=== PATIENT | male | born 1990 | race Asian ===

== ENCOUNTER 2017-06-23 15:47 | Emergency (ER) | payer BC, OTHER ==
[~2017-06-23] VITALS: Ht 160 cm; Wt 63.5 kg
[~2017-06-23 15:47] MED LIST: CIPR500T PO; METH-364 PO; PROP10TA PO
[2017-06-23 16:15] LABS: BILIRUBIN,URINE NEGATIVE (NEG); GLUCOSE,URINE NEGATIVE (NEG); NITRITE,URINE NEGATIVE (NEG); PH,URINE 5.5; PROTEIN,URINE 100 mg/dL (NEG-TRACE); UROBILINOGEN,URINE 0.2 mg/dL (0.2 mg/dL)
[2017-06-23 16:26] LABS: BACTERIA,URINE FEW /HPF (0-FEW); SQUAMOUS EPITHELIAL CELL,UR OCC /LPF; WBC,URINE TNTC /HPF (0-4)
[2017-06-23] MEDS ORDERED: IOHEXOL 300 MG/ML 75 ML VIAL IV ONE (16:45)
[2017-06-23] MEDS ORDERED: CONTRAST GIVEN MC PRN (16:45)
--- NOTE | 2017-06-23 17:19 | RAD ---
CT abdomen and pelvis with contrast History: Bilateral flank pain, painful urination for 2 months Technique: After the administration of intravenous contrast, CT imaging was performed of the abdomen and pelvis. No oral contrast was given as per request. Multiplanar images are reviewed. Exposure: One or more of the following individualized dose reduction techniques were utilized for this examination: 1. Automated exposure control 2. Adjustment of the mA and/or kV according to patient size 3. Use of iterative reconstruction technique. Contrast: 75 cc Omnipaque 300 Comparison: November 06, 2015 Findings: There is no significant abnormality of the visualized lung bases. There is no significant abnormality of the liver, spleen, pancreas, adrenal glands. Both kidneys enhance without hydronephrosis. There is likely 2 mm superior right renal calculi somewhat less apparent than previously.Gallbladder is present without obvious intraluminal abnormality by CT. Accurate evaluation of bowel is limited without oral contrast. There is no significant inflammatory change adjacent to the bowel. There is no evidence of bowel obstruction, free fluid, or free air. Normal appendix is visualized. There is mild circumferential prominence of the urinary bladder wall. There is no significant lymphadenopathy. No significant osseous abnormality is identified. Impression: 1. There is likely small 2 mm superior right renal calculus less apparent than previously, no hydronephrosis. Nonspecific circumferential prominence of the urinary bladder wall could be due to cystitis in the appropriate clinical setting. Electronically signed by: Yair Sy MD (06/23/2017 5:16 PM) [facility]
[2017-06-23 19:12] VITALS: BP 129/91
--- NOTE | 2017-06-23 20:07 | ED.ADGEN ---
Past Medical History Past Medical History: Hepatitis, Other Additional Past Medical Histor: B Past Surgical History: No Surgical History Alcohol Use: None Drug Use: None Adult General Chief Complaint Chief Complaint: FLANK PAIN HPI HPI Patient is a 26 year old [place] male presents with right flank pain for the past several hours. Pain is nonreproducible nonradiating and is associated with dysuria. Patient reports fever of 102 earlier today. No nausea vomiting chills sweats or hematuria. No history of kidney stones. No testicular pain, tenderness or swelling. Denies abdominal pain. No prior medical history. Patient is non-Occitan speaking. Translation was assisted by a family friend. Review of Systems Review of Systems Review of symptoms as per history of present illness. All other review symptoms are negative. Current Medications Current Medications Current Medications Medications (Trade) Dose Ordered Sig/Estella Start Time Stop Time Status Last Admin Dose Admin Ceftriaxone Sodium 50 ml @ 100 mls/hr 1X ONCE 06/23/17 17:45 06/23/17 18:14 DC 06/23/17 17:46 100 MLS/HR Info (Do NOT chart on this entry -- for MONITORING) 1 each PRN DAILY PRN 06/23/17 16:45 06/23/17 19:22 DC Iohexol (Omnipaque 300 Mg/ml) 75 ml 1X ONCE 06/23/17 16:45 06/23/17 16:46 DC 06/23/17 16:40 75 ML Allergies Allergies Allergies Coded Allergies Type Severity Reaction Last Updated Verified No Known Drug Allergies 11/06/15 No Physical Exam Physical Exam Constitutional: Well developed, well nourished, no acute distress, non-toxic appearance. [] HENT: Normocephalic, atraumatic, bilateral external ears normal, oropharynx moist, no oral exudates, nose normal. [] Eyes: PERRLA, EOMI, conjunctiva normal, no discharge. [] Neck: Normal range of motion, no tenderness, supple, no stridor. [] Cardiovascular:Heart rate regular rhythm, no murmur [] Lungs & Thorax: Bilateral breath sounds clear to auscultation [] Abdomen: Bowel sounds normal, soft, no tenderness, no masses, no pulsatile masses. [] Skin: Warm, dry, no erythema, no rash. [] Back: R Flank pain, no CVA tenderness. [] Extremities: No tenderness, no cyanosis, no clubbing, ROM intact, no edema. [] Neurologic: Alert,, normal motor function, normal sensory function, no focal deficits noted. [] Psychologic: Affect normal, judgement normal, mood normal. [] Current Patient Data Vital Signs Vital Signs Date Time Temp Pulse Resp B/P (MAP) Pulse Ox O2 Delivery O2 Flow Rate FiO2 06/23/17 19:12 94 23 129/91 (104) 99 Room Air 06/23/17 18:35 99.0 99.0 Lab Values Laboratory Tests Test 06/23/17 15:52 06/23/17 18:33 Urine Color Yellow Urine Clarity Turbid Urine pH 5.5 Urine Specific [place] 1.010 Urine Protein 100 mg/dL (NEG-TRACE) Urine Glucose (UA) Negative mg/dL (NEG) Urine Ketones (Stick) Trace mg/dL (NEG) Urine Blood Large (NEG) Urine Nitrite Negative (NEG) Urine Bilirubin Negative (NEG) Urine Urobilinogen Dipstick 0.2 mg/dL (0.2 mg/dL) Urine Leukocyte Esterase Large (NEG) Urine RBC 3-5 /HPF (0-2) Urine WBC Tntc /HPF (0-4) Urine Squamous Epithelial Cells Occ /LPF Urine Bacteria Few /HPF (0-FEW) Glucose (Fingerstick) 104 mg/dL (70-99) H EKG EKG [] Radiology/Procedures Radiology/Procedures CT abdomen and pelvis : Right dilated proximal ureter with 2 mm stone per radiology report [] Course & Med Decision Making Course & Med Decision Making Pertinent Labs and Imaging studies reviewed. (See chart for details) [Patient with acute cystitis with findings of urinary tract infection. Patient' s afebrile with stable vital signs with pain control in the emergency department. IV antibiotics given with explicit instructions to follow-up with local primary care physician. Return precautions reviewed. Patient verbalized understanding agreement discharge instructions prior to departure.] Dragon Disclaimer Dragon Disclaimer This electronic medical record was generated, in whole or in part, using a voice recognition dictation system. CADNELARIO ARMSTRONG DO Jun 23, 2017 20:07
== END 2017-06-23 19:20 | disposition home or self-care (01) ==
LOC: ER 15:47
DX: N30.00 Acute cystitis without hematuria (principal); Z86.19 Personal history of other infectious and parasitic diseases
CPT/HCPCS: 74177; 81001; 82962; 87086; 96365; 99285; J0690; Q9967

== ENCOUNTER 2017-07-11 14:59 | Emergency (ER) | payer BC ==
[~2017-07-11] VITALS: Ht 160 cm; Wt 57.2 kg
--- NOTE | 2017-07-11 15:52 | PHYS DOC ---
Past Medical History Past Medical History: No Pertinent History Additional Past Medical Histor: B Past Surgical History: No Surgical History Alcohol Use: None Drug Use: None Adult General Chief Complaint Chief Complaint: FEVER HPI HPI 27-year-old male with no significant past medical history now complaining of fevers body aches and mild headache intermittently since last night. Patient has no chronic medical problems. Last night he perceived the onset of fevers. He has no vomiting or diarrhea. He reports intermittent mild headache but has no stiff neck and headache was gradual onset. Denies chest pain shortness of breath productive cough or abdominal pain. Patient reports normal bowel and bladder habits. He is able to walk without any difficulty and has not seen a doctor. Patient has not taken any medications for his fever. Review of Systems Review of Systems Constitutional: Denies fever or chills [] Eyes: Denies change in visual acuity, redness, or eye pain [] HENT: Denies nasal congestion or sore throat [] Respiratory: Denies cough or shortness of breath [] Cardiovascular: No additional information not addressed in HPI [] GI: Denies abdominal pain, nausea, vomiting, bloody stools or diarrhea [] : Denies dysuria or hematuria [] Musculoskeletal: Denies back pain or joint pain [] Integument: Denies rash or skin lesions [] Neurologic: Denies headache, focal weakness or sensory changes [] Endocrine: Denies polyuria or polydipsia [] Current Medications Current Medications Current Medications Medications (Trade) Dose Ordered Sig/Estella Start Time Stop Time Status Last Admin Dose Admin Acetaminophen (Tylenol) 1,000 mg 1X ONCE 07/11/17 16:00 07/11/17 16:01 DC 07/11/17 15:57 1,000 MG Ibuprofen (Motrin) 800 mg 1X ONCE 07/11/17 16:00 07/11/17 16:01 DC 07/11/17 15:56 800 MG Allergies Allergies Allergies Coded Allergies Type Severity Reaction Last Updated Verified No Known Drug Allergies 11/06/15 No Physical Exam Physical Exam Well-appearing 27-year-old male no acute distress positive clinical fever. Extremely supple neck. Benign exam Constitutional: Well developed, well nourished, no acute distress, non-toxic appearance. [] HENT: Normocephalic, atraumatic, bilateral external ears normal, oropharynx moist, no oral exudates, nose normal. [] Eyes: PERRLA, EOMI, conjunctiva normal, no discharge. [] Neck: Normal range of motion, no tenderness, supple, no stridor. [] Cardiovascular:Heart rate regular rhythm, no murmur [] Lungs & Thorax: Bilateral breath sounds clear to auscultation [] Abdomen: Bowel sounds normal, soft, no tenderness, no masses, no pulsatile masses. [] Skin: Warm, dry, no erythema, no rash. [] Back: No tenderness, no CVA tenderness. [] Extremities: No tenderness, no cyanosis, no clubbing, ROM intact, no edema. [] Neurologic: Alert and oriented X 3, normal motor function, normal sensory function, no focal deficits noted. [] Psychologic: Affect normal, judgement normal, mood normal. [] Current Patient Data Vital Signs Vital Signs Date Time Temp Pulse Resp B/P (MAP) Pulse Ox O2 Delivery O2 Flow Rate FiO2 07/11/17 16:00 106 19 120/77 (91) 97 Room Air 07/11/17 15:09 102.9 102.9 EKG EKG [] Radiology/Procedures Radiology/Procedures [] Course & Med Decision Making Course & Med Decision Making Pertinent Labs and Imaging studies reviewed. (See chart for details) Signs and symptoms consistent with viral syndrome with fever and a well- appearing male with no significant past medical history. Course and presentation appear uncomplicated. Patient without prehospital treatment. Antipyretics administered in the emergency department. Given his benign exam and appropriate hydration status no further workup or treatment indicated at this time. Patient agrees with outpatient follow-up and strict return precautions given. [] Dragon Disclaimer Dragon Disclaimer This electronic medical record was generated, in whole or in part, using a voice recognition dictation system. Departure Departure Impression: Primary Impression: Viral syndrome Additional Impression: Fever Disposition: 01 HOME, SELF-CARE Condition: STABLE Referrals: NO PCP (PCP) Patient Instructions: Fever, Adult, Viral Syndrome Additional Instructions: You have a viral syndrome. This will get better on its own with supportive treatment. Rest and drink plenty of nonalcoholic fluids. If you have fever or aches and pains take 800 mg of ibuprofen every 6 hours and Tylenol every 4 hours as needed. Follow-up with your doctor in 1-2 days and return immediately for new severe or worsening symptoms. Problem Qualifiers SAMREEN LEWIS MD Jul 11, 2017 15:52
[2017-07-11 16:00] VITALS: BP 120/77
[2017-07-11] MEDS ORDERED: IBUPROFEN 800 MG TABLET. PO ONE (16:00)
[2017-07-11] MEDS ORDERED: ACETAMINOPHEN 500 MG TABLET PO ONE (16:00)
== END 2017-07-11 16:03 | disposition home or self-care (01) ==
LOC: ER 14:59
DX: B34.9 Viral infection, unspecified (principal)
CPT/HCPCS: 99284

== ENCOUNTER 2017-08-23 16:18 | Emergency (ER) | payer BC ==
[~2017-08-23] VITALS: Ht 160 cm; Wt 64.4 kg
--- NOTE | 2017-08-23 16:48 | PHYS DOC ---
Past Medical History Past Medical History: No Pertinent History Additional Past Medical Histor: B Past Surgical History: No Surgical History Alcohol Use: None Drug Use: None Adult General Chief Complaint Chief Complaint: FLANK PAIN HPI HPI Patient is a 27 year old male presenting to the emergency department for evaluation of right flank pain that has been an ongoing issue for months. In this emergency department in June and had a CT which showed a superior pole 2 mm kidney stone patient says that he feels that he is having pain from his kidney stone. Patient says that the pain is mostly constant but gets worse with movements but can also happen when he is laying flat. He says the pain tenderness to his abdomen and causes some nausea but he denies any dysuria hematuria fevers chills or vomiting. Patient has not been taking anything for pain and she is in no obvious distress with normal vital signs. Review of Systems Review of Systems Constitutional: Denies fever or chills [] Respiratory: Denies cough or shortness of breath [] Cardiovascular: No additional information not addressed in HPI [] GI: + abdominal pain, nausea. No vomiting, bloody stools or diarrhea [] : Denies dysuria or hematuria [] Musculoskeletal: + back pain Neurologic: Denies headache, focal weakness or sensory changes [] Current Medications Current Medications Current Medications Medications (Trade) Dose Ordered Sig/[facility] Start Time Stop Time Status Last Admin Dose Admin Acetaminophen/ Hydrocodone Bitart (Lortab 5/325) 1 tab 1X ONCE 08/23/17 17:00 08/23/17 17:01 DC 08/23/17 17:15 1 TAB Diazepam (Valium) 5 mg 1X ONCE 08/23/17 17:00 08/23/17 17:01 DC 08/23/17 17:13 5 MG Ketorolac Tromethamine (Toradol Im) 60 mg 1X ONCE 08/23/17 17:00 08/23/17 17:01 DC 08/23/17 17:15 60 MG Allergies Allergies Allergies Coded Allergies Type Severity Reaction Last Updated Verified No Known Drug Allergies 11/06/15 No Physical Exam Physical Exam Constitutional: Well developed, well nourished, no acute distress, non-toxic appearance. [] Cardiovascular:Heart rate regular rhythm, no murmur [] Lungs & Thorax: Bilateral breath sounds clear to auscultation [] Abdomen: Bowel sounds normal, soft, no tenderness, no masses, no pulsatile masses. [] Skin: Warm, dry, no erythema, no rash. [] Back: + R CVA tenderness and lower thoracic paraspinal ttp. [] Extremities: No tenderness, no cyanosis, no clubbing, ROM intact, no edema. [] Neurologic: Alert and oriented X 3, normal motor function, normal sensory function, no focal deficits noted. [] Current Patient Data Vital Signs Vital Signs Date Time Temp Pulse Resp B/P (MAP) Pulse Ox O2 Delivery O2 Flow Rate FiO2 08/23/17 17:15 23 98 Room Air 08/23/17 16:30 98.5 87 142/89 (106) 98.5 Lab Values Laboratory Tests Test 08/23/17 16:27 Urine Collection Type Unknown Urine Color Yellow Urine Clarity Clear Urine pH 6.0 Urine Specific [place] >=1.030 Urine Protein Negative mg/dL (NEG-TRACE) Urine Glucose (UA) Negative mg/dL (NEG) Urine Ketones (Stick) Trace mg/dL (NEG) Urine Blood Small (NEG) Urine Nitrite Negative (NEG) Urine Bilirubin Negative (NEG) Urine Urobilinogen Dipstick 0.2 mg/dL (0.2 mg/dL) Urine Leukocyte Esterase Moderate (NEG) Urine RBC 0 /HPF (0-2) Urine WBC 11-20 /HPF (0-4) Urine Squamous Epithelial Cells None /LPF Urine Bacteria Few /HPF (0-FEW) Urine Mucus Slight /LPF EKG EKG [] Radiology/Procedures Radiology/Procedures Exam performed: CT scan of the abdomen and pelvis without contrast. Clinical Indication: Right flank pain for 2 months. Date of Service: 08/23/2017 . Comparison: CT abdomen and pelvis with contrast from 06/23/2017 Technique: Contiguous helical acquisitions are obtained through the abdomen and pelvis without oral or IV contrast. Sagittal and coronal reformatted images are obtained and reviewed. CT abdomen findings: Tiny 2 mm nonobstructing calculus in the right superior renal pole is redemonstrated. No additional renal calculi are seen. There is no hydronephrosis or perinephric inflammatory changes. The proximal ureters are nondilated. The lung bases are essentially clear. The visualized heart is normal. Lack of IV contrast limits evaluation of abdominal viscera, however the liver, spleen, pancreas and gallbladder appear normal. Both adrenal glands and bilateral kidneys are normal in size. Aorta is normal in caliber. No retroperitoneal or mesenteric lymphadenopathy. Small and large bowel loops are nondilated and unremarkable. Visualized appendix is normal. CT pelvis findings: The pelvic bowel loops are nondilated and unremarkable. The urinary bladder is decompressed and apparently thick-walled. Prostate gland, seminal vesicles and rectum appear normal. No fluid collections or pelvic lymphadenopathy. Bones are unremarkable. Impression: Stable tiny 2 mm nonobstructing right superior renal pole calculus. No evidence of obstructive urolithiasis seen. PQRS Compliance Statement: One or more of the following individualized dose reduction techniques were utilized for this examination: 1. Automated exposure control 2. Adjustment of the mA and/or kV according to patient size 3. Use of iterative reconstruction technique Electronically signed by: Ramya Alas MD (08/23/2017 5:19 PM) [facility] DICTATED and SIGNED BY: RAMYA ALAS MD DATE: 08/23/17 1714 Course & Med Decision Making Course & Med Decision Making Patient with stable CT that appears that he has some infection on his urinalysis. Pain is likely attributed to musculoskeletal rather than pyelonephritis given how mild his urine appears. Patient will be treated with Levaquin as an outpatient and told to take NSAIDs for pain. He was told to follow with a primary care provider and come back to the ED sooner with worsening pain fevers vomiting or other general concerns. Patient aware and agreeable with plan for discharge and verbalized understanding of the need for short-term follow-up and strict ED return precautions discussed as above. Dragon Disclaimer Dragon Disclaimer This electronic medical record was generated, in whole or in part, using a voice recognition dictation system. Departure Departure Impression: Primary Impression: Back pain Additional Impression: UTI (urinary tract infection) Disposition: 01 HOME, SELF-CARE Condition: STABLE Referrals: NO PCP (PCP) DILLON LEMUS MD Patient Instructions: Back Pain, Adult Additional Instructions: Take 400mg of ibuprofen every 6 hours. Follow with a primary care provider and come back to the ED with worsening pain, fevers, vomiting, or other general concerns. Thank you! Scripts Ciprofloxacin Hcl (CIPROFLOXACIN HCL) 500 Mg Tablet 1 TAB PO BID, #14 TAB Prov: WES GRAY DO 08/23/17 Problem Qualifiers Primary Impression: Back pain Back pain location: thoracic back pain Chronicity: chronic Back pain laterality: right Qualified Codes: M54.6 - Pain in thoracic spine; G89.29 - Other chronic pain WES GRAY DO Aug 23, 2017 16:48
[2017-08-23 17:00] VITALS: BP 151/85
[2017-08-23] MEDS ORDERED: diazePAM 5 MG TABLET PO ONE (17:00)
[2017-08-23] MEDS ORDERED: KETOROLAC 60 MG/2 ML INJ. IM ONE (17:00)
[2017-08-23] MEDS ORDERED: HYDROcodone/APAP 5/325MG 1 TAB TABLET PO ONE (17:00)
[2017-08-23 17:04] LABS: BILIRUBIN,URINE NEGATIVE (NEG); GLUCOSE,URINE NEGATIVE (NEG); NITRITE,URINE NEGATIVE (NEG); PROTEIN,URINE NEGATIVE (NEG-TRACE); UROBILINOGEN,URINE 0.2 mg/dL (0.2 mg/dL)
[2017-08-23 17:20] LABS: BACTERIA,URINE FEW /HPF (0-FEW); RBC,URINE 0 /HPF (0-2)
--- NOTE | 2017-08-23 17:23 | RAD ---
Exam performed: CT scan of the abdomen and pelvis without contrast. Clinical Indication: Right flank pain for 2 months. Date of Service: 08/23/2017 . Comparison: CT abdomen and pelvis with contrast from 06/23/2017 Technique: Contiguous helical acquisitions are obtained through the abdomen and pelvis without oral or IV contrast. Sagittal and coronal reformatted images are obtained and reviewed. CT abdomen findings: Tiny 2 mm nonobstructing calculus in the right superior renal pole is redemonstrated. No additional renal calculi are seen. There is no hydronephrosis or perinephric inflammatory changes. The proximal ureters are nondilated. The lung bases are essentially clear. The visualized heart is normal. Lack of IV contrast limits evaluation of abdominal viscera, however the liver, spleen, pancreas and gallbladder appear normal. Both adrenal glands and bilateral kidneys are normal in size. Aorta is normal in caliber. No retroperitoneal or mesenteric lymphadenopathy. Small and large bowel loops are nondilated and unremarkable. Visualized appendix is normal. CT pelvis findings: The pelvic bowel loops are nondilated and unremarkable. The urinary bladder is decompressed and apparently thick-walled. Prostate gland, seminal vesicles and rectum appear normal. No fluid collections or pelvic lymphadenopathy. Bones are unremarkable. Impression: Stable tiny 2 mm nonobstructing right superior renal pole calculus. No evidence of obstructive urolithiasis seen. PQRS Compliance Statement: One or more of the following individualized dose reduction techniques were utilized for this examination: 1. Automated exposure control 2. Adjustment of the mA and/or kV according to patient size 3. Use of iterative reconstruction technique Electronically signed by: Ramya Alas MD (08/23/2017 5:19 PM) [facility]
[2017-08-23] MEDS ORDERED: CIPR500T PO (17:34)
== END 2017-08-23 17:45 | disposition home or self-care (01) ==
LOC: ER 16:18
DX: N39.0 Urinary tract infection, site not specified (principal); G89.29 Other chronic pain; M54.6 Pain in thoracic spine
CPT/HCPCS: 74176; 81001; 87086; 96372; 99285; J1885